=== PATIENT | female | born 1955 | race Caucasian/White ===

== ENCOUNTER 2017-05-27 23:56 | Emergency (ER) | payer OTHER ==
[2017-05-28 00:09] VITALS: BP 122/97; BMI 21.7
[2017-05-28] MEDS ORDERED: ZOFRAN INJ 4 MG VIAL IVP ONE (01:12)
--- NOTE | 2017-05-28 01:14 | DR.GENAD ---
HPI - PCP Primary Care Physician: IRASEMA - Complaint/Symptoms Chief Complaint Doctors Comments: Patient complains of being nauseated feeling sick all over with patient not being able to keep anything down. States she had chest pain earlier today but is not having any chest pain presently. She has had a cold, cough, fever, chills with nausea today. She is having epigastric stomach pain that is burning pain. States she has a history or ulcers and she is taking Prilosec and she has had a dose today. States she had a bowel movement yesterday and it was normal. Chief Complaint:: SICK NAUSEATED Self Treatment fo Chief Complaint: 2 ZOFRAN - Nurses notes reviewed Nurses Notes Review: Yes - Source History Provided: Patient - Mode of Arrival Mode of Arrival: Ambulatory - Timing Onset of Chief Complaint: 05/28/17 Came on: Gradually - Duration Duration: Constant How lon Duration: Hours - Location Location: epigastric pain - Severity Severity: Moderate - Modifying Factors Worsens:: eating Improves:: nothing PMH - PMH Past Medical History: Yes Past Medical History: Angina, Anxiety, Migraines, GERD, Headaches, Hypertension Past Medical History Comment: SCOLOSIS Past Surgical History: Yes Surgical History: Cholecystectomy, Ortho Surgery Past Surgical History Comment: TUBAL - Family History History of Family Medical Conditions: Yes Family Medical History: Cancer, DC, Coronary Artery Disease, Hypertension - Social History Does patient currently use any type of tobacco product: No Have you used tobacco products in the last 12 months: No Does any household member use tobacco: No Alcohol Use: None Do you use any recreational Drugs:: No Lives With: Spouse Lives Where: Home - infectious screening In the last 2 months have you had wt loss of >10#?: NO Have you had fever, night sweats or hemotysis?: No Have you traveled outside the country in the last 6 months?: No Isolation: Standard ROS - Review of Systems Constitutional: No Symptoms Reported, Chills, Fever, Weakness, Loss of Appetite. negative: See HPI, Diaphoresis, Malaise, Irritable, Fatigue, Other Eyes: No Symptoms Reported ENTM: Nose Discharge, Nose Congestion Respiratoy: No Symptoms Reported, Non-Productive Cough. negative: See HPI, Productive Cough, Moist Cough, Dry Cough, Hacking Cough, Barking Cough, Brassy Cough, Orthopnea, Short of Breath, Stridor, Wheezing, Hemoptysis, Other Cardiovascular: No Symptoms Reported, Chest Pain. negative: See HPI, Edema, Palpitations, Syncope, Cyanosis, Skin Mottling, Other Gastrointestinal/Abdominal: No Symptoms Reported, Abdominal Pain, Nausea, Vomiting. negative: See HPI, Constipation, Diarrhea, Food Intolerance, Other Genitourinary: No Symptoms Reported Neurological: No Symptoms Reported Musculoskeletal: No Symptoms Reported Integumentary: No Symptoms Reported Hematologic/Lymphatic: No Symptoms Reported Endocrine: No Symptoms Reported Psychiatric: No Symptoms Reported PE - Vital Signs Vitals: Temperature 98.3 F Pulse Rate 89 Respiratory Rate 20 Blood Pressure 122/97 O2 Sat by Pulse Oximetry 99 - General Limitations: No Limitations General Appearance: Alert, In Distress (mild) - Head Head Exam: Normal Inspection, Atraumatic, Normocephalic - Eyes Eye exam: Normal Appearance, PERRL, EOMI. negative: Scleral Icterus, Conjunctival Injection, Nystagmus, Miosis, Mydrasis, Periorbital Swelling, Periorbital Tenderness, Other - ENT ENT Exam: Normal Exam, Normal Oropharynx, Normal External Ear Exam, Mucous Membranes Moist, TM's Normal Bilaterally External Ear Exam: Normal External Inspection. negative: Auricular Hematoma, Auricular Trauma, Mastoid Tenderness, Pain with Movement, External Tenderness, Periauricular Adenopathy, Other TM/Canal Exam: Bilateral Normal Nose Exam: Normal Nose Exam (nasal congestion) Mouth Exam: Normal Inspection Throat Exam: Normal Inspection. negative: Tonsillar Erythema, Tonsillomegaly, Tonsillar Exudate, R Peritonsillar Mass, L Peritonsillar Mass, Muffled Voice, Other - Neck Neck Exam: Normal Inspection, Full ROM, Trachea Midline - Chest Chest Inspection: Normal Inspection, Symmetric Chest Wall Rise - Respiratory Respiratory Exam: Normal Lung Sounds Bilat Respiratory Exam: Bilateral Clear to Auscultation - Cardiovascular Cardiovascular Exam: Regular Rate, Normal Rhythm, Normal Heart Sounds - Abdominal Exam Abdominal Exam: Normal Inspection, Normal Bowel Sounds, Soft, Tenderness ( epigastric; suprapubic and LUQ tenderness), Guarding, Hyperactive Bowel Sounds Abdominal Tenderness: LUQ, LLQ, Epigastrium, Moderate - Extremities Extremities Exam: Normal Inspection, Full ROM, Normal Capillary Refill. negative: Tenderness, Edema, Joint Swelling, Calf Tenderness, Other - Back Back Exam: Normal Inspection, Full ROM. negative: Tenderness, (R) CVA Tenderness, (L) CVA Tenderness, Muscle Spasm, Paraspinal Tenderness, Vertebral Tenderness, Rashes, (R) Sciatic Notch Tenderness, (L) Sciatic Notch Tendern, (R ) Straight Leg Raise, (L) Straight Leg Raise, Other - Neurologic Neurological Exam: Alert, Oriented X3, CN II-XII Intact, Normal Gait, Reflexes Normal - Psychiatric Psychiatric Exam: Normal Affect, Normal Mood. negative: Depressed, Agitated, Anxious, Flat Affect, Manic, Homicidal Ideation, Suicidal Ideation, Other - Skin Skin Exam: Warm, Dry, Intact, Normal Color ROR - Labs Reviewed Laboratory Results Reviewed?: Yes (all labs and x-ray results reviewed and discussed with patient) Result Diagrams: 05/28/17 01:18 05/28/17 01:18 Laboratory: WBC 5.6 X10^3/uL (3.6-10.0) 05/28/17 01:18 RBC 4.23 X10^6/uL (3.5-5.4) 05/28/17 01:18 Hgb 12.2 g/dL (12.0-16.0) 05/28/17 01:18 Hct 35.9 % (36.0-47.0) L 05/28/17 01:18 MCV 84.9 fL (80.0-100.0) 05/28/17 01:18 MCH 28.8 pg (27.0-34.0) 05/28/17 01:18 MCHC 33.9 g/dL (33.0-35.0) 05/28/17 01:18 RDW 13.9 % (11.6-16.5) 05/28/17 01:18 Plt Count 130 X10^3/uL (150.0-450.0) L 05/28/17 01:18 MPV 7.3 fL (7.4-11.0) L 05/28/17 01:18 Neut % 53.3 % (42.0-75.0) 05/28/17 01:18 Lymph % 36.4 % (21.0-51.0) 05/28/17 01:18 [place] % 8.2 % (0.0-13.0) 05/28/17 01:18 Eos % 1.2 % (0.9-2.9) 05/28/17 01:18 Baso % 0.9 % (0.2-1.0) 05/28/17 01:18 Neut # 3.0 x10^3/uL (2.2-4.8) 05/28/17 01:18 Lymph # 2.1 X10^3/uL (1.3-2.9) 05/28/17 01:18 [place] # 0.5 x10^3/uL (0.3-0.8) 05/28/17 01:18 Eos # 0.1 x10^3/uL (0.0-0.2) 05/28/17 01:18 Baso # 0.0 X10^3/uL (0.0-0.1) 05/28/17 01:18 Absolute Nucleated RBC 0.1 /100WBC 05/28/17 01:18 INR Target Range - 05/28/17 01:18 INR 0.98 (0.8-1.3) 05/28/17 01:18 PTT 27.1 SECONDS (22.9-36.5) 05/28/17 01:18 PTT Comment - 05/28/17 01:18 Sodium 141 mmol/L (136-145) 05/28/17 01:18 Corrected Sodium TNP 05/28/17 01:18 Potassium 4.0 mmol/L (3.5-5.1) 05/28/17 01:18 Chloride 104 mmol/L (98-107) 05/28/17 01:18 Carbon Dioxide 29.7 mmol/L (21-32) 05/28/17 01:18 BUN 7 mg/dL (7-18) 05/28/17 01:18 Creatinine 0.90 mg/dL (0.55-1.02) 05/28/17 01:18 Est GFR (MDRD) Af Amer > 60 (>60) 05/28/17 01:18 Est GFR (MDRD) Non-Af > 60 (>60) 05/28/17 01:18 Glucose 89 mg/dL (65-99) 05/28/17 01:18 Calcium 8.5 mg/dL (8.5-10.1) 05/28/17 01:18 Corrected Calcium 9.1 mg/dL (8.5-10.1) 05/28/17 01:18 Magnesium 2.2 mg/dL (1.7-2.9) 05/28/17 01:18 Total Bilirubin 0.20 mg/dL (0.2-1.0) 05/28/17 01:18 AST 60 Units/L (15-37) H 05/28/17 01:18 ALT 40 Units/L (12-78) 05/28/17 01:18 Alkaline Phosphatase 180 Units/L (46-116) H 05/28/17 01:18 Creatine Kinase 183 Units/L (26-192) 05/28/17 01:18 CK-MB (CK-2) < 1.0 ng/mL (0-4.0) 05/28/17 01:18 CK/CKMB % Calc 0.6 % (<4) 05/28/17 01:18 Troponin I < 0.02 ng/mL (0-1.5) 05/28/17 01:18 Total Protein 7.1 g/dL (6.4-8.2) 05/28/17 01:18 Albumin 3.3 g/dL (3.4-5.0) L 05/28/17 01:18 Globulin 3.8 g/dL (2.5-4.5) 05/28/17 01:18 Albumin/Globulin Ratio 0.9 Ratio (1.1-2.1) L 05/28/17 01:18 Amylase 114 Units/L (25-115) 05/28/17 01:18 Lipase 122 Units/L (73-393) 05/28/17 01:18 Specimen Type Clean catch urine 05/28/17 02:02 Urine Color Straw (YELLOW) 05/28/17 02:02 Urine Appearance Clear (CLEAR) 05/28/17 02:02 Urine pH 8.0 (5.0 - 8.0) 05/28/17 02:02 Ur Specific [place] 1.015 (1.000-1.030) 05/28/17 02:02 Urine Protein Negative (NEGATIVE) 05/28/17 02:02 Urine Glucose (UA) Negative (NEGATIVE) 05/28/17 02:02 Urine Ketones Negative (NEGATIVE) 05/28/17 02:02 Urine Occult Blood 2+ (NEGATIVE) 05/28/17 02:02 Urine Nitrite Negative (NEGATIVE) 05/28/17 02:02 Urine Bilirubin Negative (NEGATIVE) 05/28/17 02:02 Urine Urobilinogen Normal (NORMAL) 05/28/17 02:02 Ur Leukocyte Esterase 1+ (NEGATIVE) 05/28/17 02:02 Urine RBC 0-3 /HPF (NEGATIVE) 05/28/17 02:02 Urine WBC 2-4 /HPF (NEGATIVE) 05/28/17 02:02 Ur Squamous Epith Cells Rare /HPF (NEGATIVE) 05/28/17 02:02 Urine Bacteria Trace /HPF (NEGATIVE) 05/28/17 02:02 Ur Culture Indicated? No/not indicated 05/28/17 02:02 H. pylori IgG Antibody Negative (NEGATIVE) 05/28/17 01:18 - XRAY XRAY Interpreted by: Radiologist (CT abdomen: Negative CT examination of the abdomena nd pelvis) - EKG Rate: 77 [place]: Normal Rhythm: NSR Block: None Hypertrophy: LAE ST: Old, Ant, Nonsp - Diagnosis Discharge Problem: Abdominal pain, Gastroenteritis, Chest pain - Discharge Plan Disposition: HOME, SELF-CARE Condition: Stable Prescriptions: Omeprazole 40 mg PO DAILY PRN #14 capsule.dr PRN Reason: Ondansetron [Zofran Odt] 4 mg PO Q8H PRN #18 tab PRN Reason: Nausea/Vomiting - Follow ups/Referrals Follow ups/Referrals: ALLY HURST [Primary Care Provider] - 3 days - Instructions Instructions: Viral Gastroenteritis, Adult, [id number], Duodenitis
[2017-05-28] MEDS ORDERED: ZOFRAN INJ 4 MG VIAL ONE (01:17)
[2017-05-28] MEDS ORDERED: LEVSIN/MAALOX/LIDOC VISC PO ONE (01:22)
[2017-05-28] MEDS ORDERED: LEVSIN/MAALOX/LIDOC VISC ONE (01:30)
[2017-05-28 01:33] LABS: BASOPHILS % (AUTO) 0.9 % (0.2-1.0); EOSINOPHILS # (AUTO) 0.1 x10^3/uL (0.0-0.2); EOSINOPHILS % (AUTO) 1.2 % (0.9-2.9); HEMATOCRIT 35.9 % (36.0-47.0); HEMOGLOBIN 12.2 g/dL (12.0-16.0); LYMPHOCYTES # (AUTO) 2.1 X10^3/uL (1.3-2.9); LYMPHOCYTES % (AUTO) 36.4 % (21.0-51.0); MEAN CORPUSCULAR HEMOGLOBIN 28.8 pg (27.0-34.0); MEAN CORPUSCULAR HGB CONC 33.9 g/dL (33.0-35.0); MEAN CORPUSCULAR VOLUME 84.9 fL (80.0-100.0); MEAN PLATELET VOLUME 7.3 fL (7.4-11.0); MONOCYTES # (AUTO) 0.5 x10^3/uL (0.3-0.8); MONOCYTES % (AUTO) 8.2 % (0.0-13.0); NEUTROPHILS % (AUTO) 53.3 % (42.0-75.0); PLATELET COUNT 130 X10^3/uL (150.0-450.0); RED BLOOD COUNT 4.23 X10^6/uL (3.5-5.4); RED CELL DISTRIBUTION WIDTH 13.9 % (11.6-16.5); WHITE BLOOD COUNT 5.6 X10^3/uL (3.6-10.0)
[2017-05-28 01:44] LABS: ALANINE AMINOTRANSFERASE 40 Units/L (12-78); ALBUMIN 3.3 g/dL (3.4-5.0); ALKALINE PHOSPHATASE 180 Units/L (46-116); AMYLASE 114 Units/L (25-115); ASPARTATE AMINO TRANSFERASE 60 Units/L (15-37); BLOOD UREA NITROGEN 7 mg/dL (7-18); CALCIUM 8.5 mg/dL (8.5-10.1); CARBON DIOXIDE 29.7 mmol/L (21-32); CHLORIDE 104 mmol/L (98-107); COR CA(FOR HYPOALB) 9.1 mg/dL (8.5-10.1); LIPASE 122 Units/L (73-393); SODIUM 141 mmol/L (136-145); TOTAL PROTEIN 7.1 g/dL (6.4-8.2); eGFR BLACK RACES > 60 (>60); eGFR NON BLACK RACES > 60 (>60)
[2017-05-28 01:57] LABS: CKMB % 0.6 % (<4); CREATINE KINASE 183 Units/L (26-192); CREATINE KINASE MB < 1.0 ng/mL (0-4.0); MAGNESIUM 2.2 mg/dL (1.7-2.9); TROPONIN I < 0.02 ng/mL (0-1.5)
[2017-05-28 02:13] LABS: BILIRUBIN,URINE NEGATIVE (NEGATIVE); BLOOD/HEMOGLOBIN,URINE 2+ (NEGATIVE); GLUCOSE, URINE NEGATIVE (NEGATIVE); KETONES,URINE NEGATIVE (NEGATIVE); LEUKOCYTE ESTERASE ,URINE 1+ (NEGATIVE); NITRITES,URINE NEGATIVE (NEGATIVE); PROTEIN,URINE NEGATIVE (NEGATIVE); UROBILINOGEN,URINE NORMAL (NORMAL)
--- NOTE | 2017-05-28 02:18 | CT ---
EXAM: CT ABDOMEN AND PELVIS WITHOUT CONTRAST INDICATION: Abdominal pain COMPARISION: No priors available for comparison TECHNIQUE: Axial CT examination of the abdomen and pelvis was performed without intravenous contrast. Coronal an d sagittal reconstructions were created using the axial data. FINDINGS: The lung bases are clear. The liver, spleen, pancreas, adrenal glands, and kidneys are normal. The ga llbladder has been removed. There is no evidence of biliary ductal dilatation. The aorta and inferior vena cava are normal in caliber. The bowel loops are nonobstructed. No abnormal mass, lymphadenopathy, or fluid collection. Urinary bladder is normal. The regional skeleton is intact. IMPRESSION: Negative CT examination of the abdomen and pelvis. Reported By:
[2017-05-28 02:20] LABS: APPEARANCE,URINE CLEAR (CLEAR); BACTERIA,URINE TRACE /HPF (NEGATIVE); COLOR,URINE STRAW (YELLOW); RBC,URINE 0-3 /HPF (NEGATIVE); SQUAMOUS EPITHELIAL CELL,UR RARE /HPF (NEGATIVE)
[2017-05-28] MEDS ORDERED: TORADOL 30 MG VIAL IVP ONE (02:47)
[2017-05-28] MEDS ORDERED: TORADOL 30 MG VIAL IVP STA (02:48)
[2017-05-28] MEDS ORDERED: TORADOL 30 MG VIAL ONE (02:49)
== END 2017-05-28 03:00 | disposition home or self-care (01) ==
LOC: ER 23:56
DX: R10.13 Epigastric pain (principal); K52.89 Other specified noninfective gastroenteritis and colitis; R07.89 Other chest pain
CPT/HCPCS: 36415; 74176; 80053; 81001; 82150; 82550; 82553; 83690; 83735; 84484; 85025; 85610; 85730; 86677; 93005; 93010; 96365; 96374; 96375; 99283; A4216; A4222; J1885; J2405